=== PATIENT | male | born 1980 | race Two or more races ===

== ENCOUNTER 2019-09-15 04:43 | Emergency (ER) | payer OTHER ==
[~2019-09-15] VITALS: Ht 162.6 cm; Wt 78.3 kg
[2019-09-15] MEDS ORDERED: KETOROLAC TROMETHAMINE 30 MG/ML VIAL IM ONE (05:30)
[2019-09-15 05:36] VITALS: BP 136/80
== END 2019-09-15 07:00 | disposition home or self-care (01) ==
LOC: EMS 04:43
DX: S82.52XA Displaced fracture of medial malleolus of left tibia, initial encounter for closed fracture (principal); W19.XXXA Unspecified fall, initial encounter; Y93.89 Activity, other specified; Y92.89 Other specified places as the place of occurrence of the external cause; Y99.8 Other external cause status
CPT/HCPCS: 29515; 73590; 73610; 73630; 99284; J1885